=== PATIENT | female | born 1970 | race Caucasian/White ===

== ENCOUNTER 2017-04-24 17:51 | Inpatient (IN) | payer MEDICARE ==
[~2017-04-24] VITALS: Ht 157.5 cm; Wt 77.1 kg
--- NOTE | ~2017-04-24 | PA ---
Unit #: [id number] #: [id number] Patient: ELENITA BROUSSARD [id number] [facility] [address] [place] [address] [id number] I MR#: [id number] NAME: ELENITA BROUSSARD ROOM: [facility] Age: 47 Sex: F Admission Date: 04/24/2017 : 1970 Date of Assessment: 04/25/2017 Attending Physician: Hima Sylvester M.D. Admitting Physician: Hima Sylvester M.D. Primary Care Physician: Primary Care Physician No PSYCHIATRIC ASSESSMENT INFORMANTS The patient reliability, fair informant and chart reliability, good. CHIEF COMPLAINT Depression and suicidal ideation. HISTORY OF PRESENT ILLNESS Ms. Dutta is a 47-year-old female, presented with the above-mentioned complaint. The patient reports that her medications are not working and reported suicidal ideation with a plan to overdose on pills. The patient reported having suicidal ideation for the last 3 days. The patient reported feeling sad, depressed, and feeling of hopelessness and worthlessness. Reported auditory hallucination and command hallucination to kill herself. The patient reported previous two suicide attempts by taking an overdose. The patient denied any homicidal ideation or any drug abuse. Lives alone. The patient reports she is on disability for mental health. Reports she has attended college. Currently, staying in a homeless nursing home. Unable to take her medication. Also, diagnosed with diabetes. Poor support system. Sleeping 4 hours. Needing inpatient admission at this time for psychiatric stabilization. PAST PSYCHIATRIC HISTORY Remarkable for history of previous two suicide attempts as mentioned above. History of previous inpatient treatment in 10/2016 and history of inpatient in 2015 at [facility]. FAMILY HISTORY AND SOCIAL HISTORY Poor support system. Currently, lives in a nursing home. No known history of any abuse known at this time. MEDICAL HISTORY Remarkable for diabetes. Musculoskeletal; muscle strength and tone, no atrophy or abnormal movement. Gait normal. MEDICATION HISTORY The patient is on metformin, Risperdal, Paxil, and Cogentin. ALLERGIES No known drug allergies. SUBSTANCE ABUSE HISTORY Tobacco use, age of onset 41 and alcohol, last use a month ago. No known history of any blackout, HIV, hepatitis, withdrawal symptom, or IV drug Unit #: [id number] #: [id number] Patient: ELENITA BROUSSARD use. REVIEW OF SYSTEMS HEENT: Eyes, clear. Ears, nose, mouth, and throat; clear. CARDIOVASCULAR: Unremarkable. RESPIRATORY: Unremarkable. GI: Unremarkable. : Unremarkable. SKIN: Unremarkable. LYMPH NODE: Unremarkable. NEUROLOGIC: Unremarkable. ENDOCRINE: Unremarkable. HEMATOLOGIC: Unremarkable. ALLERGIC/IMMUNOLOGIC: Unremarkable. MUSCULOSKELETAL: Muscle strength and tone, no atrophy or abnormal movement. Gait normal. MENTAL STATUS EXAMINATION CONSTITUTIONAL: Measurement of vital signs; temperature 98.1, heart rate 90, respiratory rate 18, and blood pressure 125/93. Height 5 feet 2 inches and weight 170 pounds. GENERAL APPEARANCE: The patient dressed casually. The patient did not show any facial deformity. MUSCULOSKELETAL: Please see above. PSYCHIATRIC EXAMINATION Description of speech, slow in volume and rate. Description of thought process, circumstantial. Description of association; guarded, paranoid, depressed, and suicidal ideation. Denied any homicidal ideation. Description of the patient's judgment: Concerning everyday activity, poor. Social situation, poor. Concerning psychiatric condition, poor. Complete mental status examination; oriented in time, place, and person. Recent and remote memory, fair. Attention span and concentration, fair. Language, able to name object and repeat phrases. Fund of knowledge, aware of current event and passive vocabulary intact. Mood and affect, sad and dysphoric. Insight and judgment, fair to poor. ASSETS AND LIABILITIES Assets, the patient is articulate and able to take care of her ADL. Liability, history of depression and suicidal ideation. ADMITTING DIAGNOSES Psychiatric: Major depressive disorder, recurrent, severe, F33.2; rule out bipolar mood disorder; rule out schizophrenia; and anxiety disorder, not otherwise specified. Secondary diagnosis: Deferred. Medical diagnosis: Diabetes. Stressors: Psychosocial stressors. PSYCHIATRIC PLAN AND TREATMENT GOAL AND DISCHARGE PLAN 1. Advised to admit the patient on the inpatient unit. Provide safe, supportive, and structured environment. 2. Ordered labs; CBC, CMP, UA, and UDS. 3. Precaution for self-harm and psychosis. Advised to resume home Unit #: [id number] #: [id number] Patient: ELENITA BROUSSARD medication. If needed, consider further adjustment of medication. We will get a medical consult for the management of diabetes. The patient to attend all the programing on the inpatient unit including group therapy and individual therapy. TREATMENT GOAL To attain euthymic mood, gain insight into her problem, and learn coping skills. DISCHARGE PLAN Plan to stabilize the patient and consider followup in outpatient program. ESTIMATED LENGTH OF STAY 2 weeks. Dictated by... Lanre Worrell/merlin TD: 04/25/2017 17:51 JOB #: [id number] PSYCHIATRIC ASSESSMENT Page 1 of 1 X Hima Sylvester MD X PSYCHIATRIC ASSESSMENT
--- NOTE | ~2017-04-24 | PN ---
Unit #: [id number] #: [id number] Patient: ELENITA BROUSSARD [id number] [facility] [address] [place] [address] [id number] MR#: [id number] NAME: ELENITA BROUSSARD ROOM: [facility] Age: 47 Sex: F Admission Date: 04/24/2017 : 1970 Attending Physician: Hima Sylvester M.D. Admitting Physician: Hima Sylvester M.D. Primary Care Physician: Primary Care Physician Constance RAMIREZ NOTES DATE OF SERVICE: 04/25/2017 DISCUSSION Ms. Dutta is a 47-year-old female. The patient interviewed, chart reviewed, and obtained information from nursing staff. The patient is compliant and cooperative, mood is sad and depressed, withdrawn, flat affect, sad and dysphoric mood, isolative. Complete review of systems unremarkable. MENTAL STATUS EXAMINATION General appearance, the patient dressed casually. Attention span and concentration, fair. Oriented in time, place, and person. Mood and affect, sad, depressed, withdrawn. Speech, monotone. Thought process, concrete. The patient denied any homicidal ideation, but suicidal ideation, hallucination, and delusional, paranoia. Recent and remote memory, poor. Insight and judgment, poor. DIAGNOSES Major depressive disorder, recurrent, severe. ASSESSMENT AND PLAN Advised to continue with current medication Paxil 20 mg daily, Cogentin 1 mg b.i.d., Risperdal 3 mg b.i.d., trazodone 75 mg q.h.s. p.r.n. for sleep. The patient to attend all the programing on the inpatient unit. If needed, consider further adjustment of medication. Dictated by... Lanre Worrell/merlin TD: 04/25/2017 17:39 JOB #: [id number] Unit #: [id number] #: [id number] Patient: ELENITA BROUSSARD [facility] PROGRESS NOTES Page 1 of 1 X Hima Sylvester MD X PROGRESS NOTE
--- NOTE | ~2017-04-24 | PN ---
Unit #: [id number] #: [id number] Patient: ELENITA BROUSSARD [id number] [facility] [address] [place] [address] [id number] I MR#: [id number] NAME: ELENITA BROUSSARD ROOM: [facility] Age: 47 Sex: F Admission Date: 04/24/2017 : 1970 Attending Physician: Hima Sylvester M.D. Admitting Physician: Hima Sylvester M.D. Primary Care Physician: Primary Care Physician Constance RAMIREZ NOTES DATE 04/27/2017 DISCUSSION Ms. Dutta is a 47-year-old female. The patient interviewed, chart reviewed, and obtained information from the nursing staff. The patient is currently on Paxil 20 mg daily, also taking Cogentin, Risperdal, the patient was somewhat guarded, paranoid, mood lability, bizarre behavior. REVIEW OF SYSTEMS Complete review of systems unremarkable. MENTAL STATUS EXAMINATION General appearance: Patient dressed casually. Attention span and concentration, fair. Oriented in time, place, and person. Mood and affect, sad and dysphoric. Speech, monotone. Thought process, concrete. The patient denied any thoughts of harming self or others. The patient still guarded, paranoid, refusing to answer questions about suicidal or homicidal ideation, but paranoia. Recent and remote memory, poor. Insight and judgment, impaired. DIAGNOSIS Schizoaffective disorder, bipolar type. ASSESSMENT/PLAN Advised to continue with the current medication and therapeutic protocol, and if needed consider further adjustment of medication. Dictated by... Lanre Worrell/dewayne TD: 04/29/2017 07:10 JOB #: [id number] Unit #: [id number] #: [id number] Patient: ELENITA BROUSSARD KATHERIN RAMIREZ NOTES Page 1 of 1 X Hima Sylvester MD PROGRESS NOTE
--- NOTE | ~2017-04-24 | HP ---
Unit #: [id number] #: [id number] Patient: ELENITA BROUSSARD [id number] [place] [address] [id number] MR#: [id number] NAME: ELENITA BROUSSARD ROOM: [facility] Age: 47 Sex: F Admission Date: 04/24/2017 : 1970 Attending Physician: Hima Sylvester M.D. Admitting Physician: Hima Sylvester M.D. Primary Care Physician: Primary Care Physician No HISTORY AND PHYSICAL HISTORY OF PRESENT ILLNESS Elenita is a 47-year-old female admitted on 04/24/2017 for depression and suicidal ideation. PAST MEDICAL HISTORY 1. Obesity. 2. Asthma. 3. Type 2 diabetes. PAST SURGICAL HISTORY 1. section x1. 2. Tonsillectomy. 3. Appendectomy. ALLERGIES Trileptal, Haldol, Geodon, . SOCIAL HISTORY Smokes 1 pack of cigarettes daily. Occasional alcohol use and denies any illegal drug use. She is currently single and homeless. FAMILY HISTORY Noncontributory. REVIEW OF SYSTEMS CONSTITUTIONAL: No fever or chills. HEENT: Denies any sore throat, ear pain or runny nose. CARDIOVASCULAR: Denies chest pain, irregular heart rhythm or palpitations. CHEST: Denies shortness of breath or cough. No hemoptysis. GASTROINTESTINAL: Denies nausea, vomiting, diarrhea or chronic constipation. ENDOCRINE: Denies history of increased thirst or urination. No recent significant weight loss or gain. GENITOURINARY: Denies dysuria, frequency, or hematuria. SKIN: Denies any rashes. HEMATOLOGIC: Denies history of increased bleeding or bruising. MUSCULOSKELETAL: Denies any hot, swollen joints. No generalized muscle pain. NEUROLOGIC: Denies problems with vision or speech. No frequent, severe headaches. No numbness, tingling or weakness in any extremities. Denies loss of bladder or bowel control. CURRENT MEDICATIONS Unit #: [id number] #: [id number] Patient: ELENITA BROUSSARD 1. Paxil. 2. Risperdal. 3. Cogentin. PHYSICAL EXAMINATION GENERAL: Alert, oriented, in no acute distress. VITAL SIGNS: Blood pressure 125/93, heart rate 90, respirations 18. HEIGHT: 5 feet 2. WEIGHT: 170 pounds. SKIN: Warm and dry without rash or lesion. HEENT: Normocephalic. TMs not viewed. Oral and nasal passages clear. Conjunctivae clear. PERRLA. EOMs intact. NECK: Supple without lymphadenopathy or thyromegaly. HEART: Regular rate and rhythm without murmur. LUNGS: Clear. ABDOMEN: Soft, nontender, without masses or hepatosplenomegaly. : Not done. EXTREMITIES: No evidence of cyanosis, clubbing or edema. Moves all without focal deficit. NEUROLOGICAL: Grossly within normal limits. Cranial Nerves: II: Visual hernandez are intact. III, IV AND : Extraocular movements are intact. Pupils are equal, round and reactive to light. V: Facial sensation is grossly normal. VII: Facial movements and expression are normal. VIII: Auditory acuity grossly intact. IX, X: Uvula is midline. Phonation is normal. XI: Patient shrugs shoulders and turns head normally. XII: Tongue protrudes in the midline. Sensory and Motor Function: Sensory and motor sensation is grossly normal. Motor: moves all extremities well. Coordination: Gait is normal. Deep Tendon Reflexes: Intact. IMPRESSION Psychiatric admission. RECOMMENDATIONS PSYCHIATRIC: Per psychiatrist. MEDICAL: No contraindication to participate in facility's activities. MEDICAL PROGNOSIS Good. MEDICAL CONDITION Stable. Dictated by... Juan Alberto Richardson/andrea TD: 04/25/2017 23:09 JOB #: [id number] Unit #: [id number] #: [id number] Patient: ELENITA BROUSSARD HISTORY AND PHYSICAL Page 1 of 1 X ALBERTO PAGAN APRN HISTORY AND PHYSICAL
--- NOTE | ~2017-04-24 | DS ---
Unit #: [id number] #: [id number] Patient: ELENITA BROUSSARD [id number] [facility] [address] [place] [address] [id number] I MR#: [id number] NAME: ELENITA BROUSSARD ROOM: [facility] Age: 47 Sex: F Admission Date: 04/24/2017 : 1970 Discharge Date: 05/01/2017 Attending Physician: Hima Sylvester M.D. Primary Care Physician: Primary Care Physician No DISCHARGE SUMMARY REASON FOR ADMISSION Suicidal ideation. DIAGNOSTIC STUDIES LABORATORY RESULTS: Remarkable for glucose 313, creatinine 0.5. HOSPITAL COURSE The patient was admitted to inpatient unit on 04/24/2017 and discharged on 05/01/2017. The patient was treated on the inpatient unit with structured milieu, medication management, psychoeducation, psychotherapy, expressive therapy. The patient was responsive to treatment and showed improvement. Subsequently, the patient was discharged with a plan to follow up in outpatient program. DISCHARGE MEDICATIONS Desyrel 75 mg at bedtime for sleep, Paxil 20 mg daily for depression, Risperdal 3 mg b.i.d. for psychosis, and Cogentin 1 mg b.i.d. for EPS symptom. DISCHARGE DIAGNOSES Psychiatric: Schizoaffective disorder, bipolar type, F25.9. Secondary diagnosis: Deferred. Medical diagnosis: Diabetes. Stressors: Psychosocial stressors. DISCHARGE INSTRUCTIONS The patient to follow up in outpatient clinic as per school social worker. CONDITION ON DISCHARGE The patient was pleasant and cooperative. Denied any psychotic symptom or any suicidal ideation. PROGNOSIS Guarded. DIET AND ACTIVITY As tolerated. Dictated by... Unit #: [id number] #: [id number] Patient: ELENITA BROUSSARD Lanre Worrell/merlin TD: 05/01/2017 15:45 JOB #: [id number] DISCHARGE SUMMARY Page 1 of 1 X Hima Sylvester MD X DISCHARGE SUMMARY
--- NOTE | ~2017-04-24 | PN ---
Unit #: [id number] #: [id number] Patient: ELENITA BROUSSARD [id number] [facility] [address] [place] [address] [id number] I MR#: [id number] NAME: ELENITA BROUSSARD ROOM: [facility] Age: 47 Sex: F Admission Date: 04/24/2017 : 1970 Attending Physician: Hima Sylvester M.D. Admitting Physician: Hima Sylvester M.D. Primary Care Physician: Primary Care Physician Constance RAMIREZ NOTES DATE 04/28/2017 DISCUSSION Ms. Dutta is a 47-year-old female, seen on 04/28/2017. The patient interviewed, chart reviewed, and obtained information from the nursing staff. The patient's vital signs stable, 98.0, 91, 14, and 116/78. The patient was cooperative, redirectable, somewhat isolative, quite, somewhat bizarre behavior. Compliant with medication. No side effects from medication. REVIEW OF SYSTEMS Complete review of systems unremarkable. MENTAL STATUS EXAMINATION General appearance: Patient dressed in hospital attire. Attention span and concentration, poor. Oriented in place and person. Mood and affect, sad, depressed, flat affect. Speech, monotone. Thought process, concrete. The patient denied any thoughts of harming self or others but withdrawn, isolative, guarded, flat, sad, dysphoric, isolative, somewhat guarded, paranoid. Recent and remote memory, poor. Insight and judgment, poor. DIAGNOSIS Bipolar mood disorder, NOS. ASSESSMENT/PLAN Advised to continue with the current medication and therapeutic protocol, and if needed consider further adjustment of medication. Dictated by... Lanre Worrell/dewayne TD: 04/30/2017 06:08 JOB #: [id number] Unit #: [id number] #: [id number] Patient: ELENITA BROUSSARD KATHERIN RAMIREZ NOTES Page 1 of 1 X Hima Sylvester MD X PROGRESS NOTE
--- NOTE | ~2017-04-24 | PN ---
Unit #: [id number] #: [id number] Patient: ELENITA BROUSSARD [id number] [facility] [address] [place] [address] [id number] I MR#: [id number] NAME: ELENITA BROUSSARD ROOM: [facility]2 Age: 47 Sex: F Admission Date: 04/24/2017 : 1970 Attending Physician: Hima Sylvester M.D. Admitting Physician: Hima Sylvester M.D. Primary Care Physician: Primary Care Physician Constance PANDEY PROGRESS NOTES DATE OF SERVICE 04/30/2017 DISCUSSION Elenita is a 47-year-old female seen on 04/30/2017. The patient interviewed, chart reviewed. Obtained information from nursing staff. The patient was compliant, cooperative. Mood sad, dysphoric, flat affect, guarded. The patient reports making progress, but still isolative, guarded. Complete Review of Systems: Unremarkable. MENTAL STATUS EXAMINATION General Appearance: The patient dressed casually. Attention span, concentration: Fair. Oriented in time, place, and person. Mood and affect: Sad, dysphoric, withdrawn. Isolative, dressed in hospital attire. Recent and remote memory: Poor. Insight and judgment: Poor. DIAGNOSIS Major depressive disorder, recurrent. ASSESSMENT/PLAN Advised to continue with current medication and therapeutic protocol. If needed, consider further adjustment of medication. Dictated by... Lanre Worrell/denice TD: 05/01/2017 06:53 JOB #: [id number] Unit #: [id number] #: [id number] Patient: ELENITA BROUSSARD [facility] PROGRESS NOTES Page 1 of 1 X Hima Sylvester MD X PROGRESS NOTE
--- NOTE | ~2017-04-24 | PN ---
Unit #: [id number] #: [id number] Patient: ELENITA BROUSSARD [id number] [facility] [address] [place] [address] [id number] I MR#: [id number] NAME: ELENITA BROUSSARD ROOM: [facility]2 Age: 47 Sex: F Admission Date: 04/24/2017 : 1970 Attending Physician: Hima ySlvester M.D. Admitting Physician: Hima Sylvester M.D. Primary Care Physician: Primary Care Physician Constance RAMIREZ NOTES DATE OF SERVICE: 04/26/2017 DISCUSSION Ms. Dutta is a 47-year-old female, seen on 04/26/2017. The patient interviewed, chart reviewed, and obtained information from nursing staff. The patient was able to participate in group, able to maintain safe behavior, compliant and cooperative. The patient did not show any aggression or any suicidal ideation, but sad, depressed, withdrawn, isolative, guarded. REVIEW OF SYSTEMS Complete review of systems unremarkable. MENTAL STATUS EXAMINATION General appearance, the patient dressed casually. Attention span and concentration, fair. Oriented in time, place, and person. Mood and affect; sad and dysphoric. Speech, monotone. Thought process, concrete. The patient denied any thoughts of harming self or others, but sad, depressed, withdrawn, isolative. Recent and remote memory, poor. Insight and judgment, poor. DIAGNOSIS Major depressive disorder, recurrent. ASSESSMENT/PLAN Advised to continue with current medication and therapeutic protocol. If needed, consider further adjustment of medication. Dictated by... Lanre Worrell/merlin TD: 04/26/2017 23:40 JOB #: [id number] Unit #: [id number] #: [id number] Patient: ELENITA BROUSSARD KATHERIN PROGRESS NOTES Page 1 of 1 X Hima Sylvester MD PROGRESS NOTE
--- NOTE | ~2017-04-24 | PN ---
Unit #: [id number] #: [id number] Patient: ELENITA BROUSSARD [id number] [facility] [address] [place] [address] [id number] I MR#: [id number] NAME: ELENITA BROUSSARD ROOM: [facility] Age: 47 Sex: F Admission Date: 04/24/2017 : 1970 Attending Physician: Hima Sylvester M.D. Admitting Physician: Hima Sylvester M.D. Primary Care Physician: Primary Care Physician Constance RAMIREZ NOTES DATE 04/29/2017 DISCUSSION Ms. Dutta is a 47-year-old female seen on 04/29/2017. Patient interviewed. Chart reviewed. Obtained information from nursing staff. Patient dressed in hospital attire, withdrawn, isolative, guarded, paranoid. Still with bizarre behavior, isolating in her room. Denied any complaints. Patient answering questions in short sentences, very quiet. No side effects from medication. Complete review of system unremarkable. MENTAL STATUS EXAMINATION General appearance, patient dressed in hospital attire. Attention span, concentration poor. Oriented in place and person. Mood and affect sad, depressed. Speech slow in volume, monotone. Thought process concrete. Patient reported having passive SI, withdrawn, isolative, guarded, paranoid. Recent and remote memory poor. Insight and judgement poor. DIAGNOSES 1. Major depressive disorder, recurrent, severe, F33.2. 2. Rule out bipolar mood disorder. 3. Rule out schizophreniform disorder. ASSESSMENT/PLAN Advised to continue with current medication and therapeutic protocol. If needed, consider further adjustment of medication. Dictated by... Lanre Worrell/andrea TD: 04/30/2017 15:30 JOB #: [id number] Unit #: [id number] #: [id number] Patient: ELENITA BROUSSARD KATHERIN RAMIREZ NOTES Page 1 of 1 X Hima Sylvester MD PROGRESS NOTE
[2017-04-25 12:28] LABS: BASOPHIL# 0.1 X10e3 (0-0.3); BASOPHIL% 0.9 % (0-2.5); DIFF IND NO; EOSINOPHIL# 0.2 X10e3 (0-0.7); EOSINOPHIL% 2.2 % (0.0-7.0); HEMATOCRIT 39.9 % (35.0-45.0); LYMPHOCYTE# 3.1 X10e3 (1.0-3.5); LYMPHOCYTE% 38.6 % (17.0-45.0); MEAN CELL VOLUME 97.9 FL (83-96); MEAN CORPUSCULAR HEMOGLOBIN 31.8 PG (28-34); MEAN CORPUSCULAR HGB CONC 32.4 g/dL (30-36); MEAN PLATELET VOLUME 7.8 FL (6.5-11.5); MONOCYTE# 0.5 X10e3 (0-1.0); NEUTROPHIL# 4.2 X10e3 (1.5-7.1); NEUTROPHIL% 52.3 % (40-75); PLATELET COUNT 423 X10e3 (140-420); RED BLOOD COUNT 4.08 X10e (3.90-5.30); RED CELL DISTRIBUTION WIDTH 13.1 % (11.0-15.5); WHITE BLOOD COUNT 8.1 X10e3 (4.0-10.5)
[2017-04-25 12:47] LABS: ALBUMIN SERUM 3.4 g/dL (3.5-5.0); BILIRUBIN,TOTAL 0.6 mg/dL (0.2-2.0); CALCIUM SERUM 8.9 mg/dL (8.4-10.2); CREATININE SERUM 0.5 mg/dL (0.6-1.4); GLOM FILT RATE Estimated 116.1 mL/min (>60); POTASSIUM 4.6 mmol/L (3.5-5.1); PROTEIN TOTAL SERUM 6.2 g/dL (6.0-8.3)
== END 2017-05-01 10:20 | disposition home or self-care (01) | DRG 885 ==
LOC: P1S 21:06
PROVIDERS: Psychiatry & Neurology Psychiatry
DX: F33.2 Major depressive disorder, recurrent severe without psychotic features (principal); E11.9 Type 2 diabetes mellitus without complications; F17.210 Nicotine dependence, cigarettes, uncomplicated; E66.9 Obesity, unspecified; J45.909 Unspecified asthma, uncomplicated
CPT/HCPCS: 80053; 84703; 85025

== ENCOUNTER 2017-05-08 01:00 | Inpatient (IN) | payer MEDICARE ==
[~2017-05-08] VITALS: Ht 154.9 cm; Wt 77.1 kg
--- NOTE | ~2017-05-08 | PN ---
Unit #: [id number] #: [id number] Patient: ELENITA BROUSSARD [id number] [facility] [address] [place] [address] [id number] MR#: [id number] NAME: ELENITA BROUSSARD ROOM: [facility] Age: 47 Sex: F Admission Date: 05/08/2017 : 1970 Attending Physician: Hima Sylvester M.D. Admitting Physician: Hima Sylvester M.D. Primary Care Physician: Primary Care Physician Constance HENSONCE PROGRESS NOTES DATE OF SERVICE 05/10/2017 DISCUSSION Ms. Dutta is a 47-year-old female. Patient interviewed, chart reviewed, I obtained information from nursing staff. Patient was compliant, cooperative; mood was labile. Patient somewhat guarded, denied any suicidal ideation this morning, but still withdrawn, isolative, guarded, poor hygiene. COMPLETE REVIEW OF SYSTEMS Unremarkable. MENTAL STATUS EXAMINATION GENERAL APPEARANCE: Patient dressed casually. ATTENTION SPAN AND CONCENTRATION: Poor. ORIENTATION: Place and person. MOOD AND AFFECT: Labile. SPEECH: Monotone. THOUGHT PROCESS: [place]. Patient denied any suicidal ideation, but withdrawn, isolative, guarded, seclusive. RECENT AND REMOTE MEMORY: Poor. INSIGHT AND JUDGMENT: Poor. DIAGNOSES Major depressive disorder, recurrent, severe Schizoaffective disorder, bipolar type ASSESSMENT/PLAN Advised to continue with current medication and therapeutic protocol. Would like to see some stability in her mood before discharging patient, as patient was admitted recently and re-hospitalized. Dictated by... Lanre Worrell/david TD: 05/11/2017 02:59 Unit #: [id number] #: [id number] Patient: ELENITA BROUSSARD JOB #: [id number] [facility] PROGRESS NOTES Page 1 of 1 X Hima Sylvester MD PROGRESS NOTE
--- NOTE | ~2017-05-08 | PA ---
Unit #: [id number] #: [id number] Patient: ELENITA BROUSSARD [id number] [facility] [place] [address] [id number] I MR#: [id number] NAME: ELENITA BROUSSARD ROOM: P131 Age: 47 Sex: F Admission Date: 05/08/2017 : 1970 Date of Assessment: Attending Physician: Hima Sylvester M.D. Admitting Physician: Hima Sylvester M.D. Primary Care Physician: Primary Care Physician No PSYCHIATRIC ASSESSMENT DATE OF SERVICE 05/08/2017 INFORMANTS The patient's reliability, fair; chart reliability, good. CHIEF COMPLAINT Depression and suicidal ideation. HISTORY OF PRESENT ILLNESS Ms. Dutta is a 47-year-old white female, who has a long history of depression, multiple admission at [facility], recent admission on 04/24/2017. The patient was last discharged on 05/01/2017. The patient presented with suicidal ideation with a plan to overdose on her pills. The patient reports that she is homeless. She has been in and out of the psychiatric treatment from the last year. She reports that she has not taken her medication in the last several weeks. The patient reported that she has 12 children and all of them are . I asked how they , she was not sure. The patient thoughts were somewhat guarded, paranoid, disorganized, attending to internal stimuli. The patient is from [place] and was on her way to [place], [place] to go back to her family. When she was stranded in [place] according to the intake report, the patient has been staying at [facility] and has not been allowed in [facility]. The patient stated that she has been hearing voices, telling her to harm herself. Needing inpatient admission at this time for psychiatric stabilization. PAST PSYCHIATRIC HISTORY Remarkable for history of previous admission on 04/24/2017. History of other treatment as mentioned above. FAMILY HISTORY AND SOCIAL HISTORY The patient has a poor support system. Currently, lives in a [facility]. No history of any abuse at this time. MEDICAL HISTORY Remarkable for history of diabetes. Musculoskeletal; muscle strength and tone, no atrophy or abnormal movement. Gait normal. MEDICATION HISTORY The patient is on metformin, Risperdal, Paxil, and Cogentin. ALLERGIES Unit #: [id number] #: [id number] Patient: ELENITA BROUSSARD No known drug allergies. SUBSTANCE ABUSE HISTORY The patient reported tobacco use, age of onset 15; alcohol, age of onset 41. No known history of any blackout, HIV, hepatitis, withdrawal symptom, or any IV drug use. REVIEW OF SYSTEMS HEENT: Eyes, clear. Ears, nose, mouth, and throat; clear. CARDIOVASCULAR: Unremarkable. RESPIRATORY: Unremarkable. GI: Unremarkable. : Unremarkable. SKIN: Unremarkable. LYMPH NODE: Unremarkable. NEUROLOGIC: Unremarkable. ENDOCRINE: Unremarkable. HEMATOLOGIC: Unremarkable. ALLERGIC/IMMUNOLOGIC: Unremarkable. MUSCULOSKELETAL: Muscle strength and tone, no atrophy or abnormal movement. Gait normal. MENTAL STATUS EXAMINATION CONSTITUTIONAL: Measurement of vital signs; temperature 98.1, heart rate 77, respirations 20, blood pressure 119/73, height 5 feet 1 inch, weight 170 pounds. GENERAL APPEARANCE: The patient dressed casually in hospital attire. No facial deformity noted. MUSCULOSKELETAL: Please see above. PSYCHIATRIC EXAMINATION Description of speech; slow in volume and rate. Description of thought process; circumstantial. Description of association; guarded. Description of abnormal psychotic thinking; guarded, paranoid, mood lability, suicidal ideation, disorganized behavior, thought process. Description of the patient's judgment; concerning everyday activity, poor. Social situation, poor. Concerning psychiatric condition, poor. Complete mental status examination; oriented in self and place. Recent and remote memory, poor. Attention span and concentration, poor. Language, fair. Fund of knowledge, poor. Vocabulary, poor. Mood and affect, sad and depressed. Insight and judgment, poor. ASSETS AND LIABILITIES Assets, the patient is articulate and able to take care of her ADL. Liability, history of depression and psychosis. ADMITTING DIAGNOSES Psychiatric: Major depressive disorder, recurrent, severe, F33.2; rule out bipolar mood disorder; rule out schizoaffective disorder. Secondary diagnosis: Deferred. Medical diagnosis: Diabetes. Stressors: Psychosocial stressors. PSYCHIATRIC PLAN Unit #: [id number] #: [id number] Patient: ELENITA BROUSSARD 1. Advised to admit the patient on the inpatient unit. Provide safe, supportive, and structured environment. 2. Ordered labs; UA, and UDS. 3. Precaution for aggression and psychosis and SC1 precaution. 4. Advised to resume the patient's medication. If needed, consider further adjustment of medication. The patient to attend all the programing on the inpatient unit. TREATMENT GOAL To attain euthymic mood, gain insight into her problem, and learn coping skills. DISCHARGE PLAN Plan to stabilize the patient and consider followup in outpatient program. ESTIMATED LENGTH OF STAY 2 weeks. Dictated by... Lanre Worrell/merlin TD: 05/09/2017 00:03 JOB #: [id number] PSYCHIATRIC ASSESSMENT Page 1 of 1 X Hima Sylvester MD X PSYCHIATRIC ASSESSMENT
--- NOTE | ~2017-05-08 | DS ---
Unit #: [id number] #: [id number] Patient: ELENITA BROUSSARD [id number] [facility] [address] [place] [address] [id number] MR#: [id number] NAME: ELENITA BROUSSARD ROOM: [facility] Age: 47 Sex: F Admission Date: 05/08/2017 : 1970 Discharge Date: 05/11/2017 Attending Physician: Hima Sylvester M.D. DISCHARGE SUMMARY REASON FOR ADMISSION Depression and suicidal ideation. DIAGNOSTIC STUDIES LABORATORY RESULTS: Unremarkable. HOSPITAL COURSE The patient was admitted to inpatient unit on 05/08/2017 and discharged on 05/11/2017. The patient was treated on the inpatient unit with group therapy, individual therapy, expressive therapy, and structured milieu. The patient was resumed on her medication. Despite medications, the patient showed improvement. Reports that she is going back to [place], [place]. She reports that she got money from her disability. The patient requested for discharge. Denied any suicidal or homicidal ideation. DISCHARGE MEDICATIONS Desyrel 75 mg at bedtime for sleep, Paxil 20 mg daily for depression, Risperdal 3 mg b.i.d. for psychosis, Cogentin 1 mg b.i.d. for EPS symptom, Glucophage 500 mg b.i.d. for diabetes, Levemir 10 units at bedtime for diabetes. DISCHARGE DIAGNOSES Psychiatric: Schizoaffective disorder, bipolar type, F25.9. Secondary diagnosis: Deferred. Medical diagnosis: Diabetes. Stressors: Psychosocial stressors. DISCHARGE INSTRUCTIONS The patient to follow up in outpatient clinic as per social work msw. CONDITION ON DISCHARGE The patient was pleasant and cooperative. Denied any psychotic symptom or any suicidal ideation. PROGNOSIS Guarded. DIET AND ACTIVITY As tolerated. Unit #: [id number] #: [id number] Patient: ELENITA BROUSSARD Dictated by... Lanre WorrellC/merlin TD: 05/11/2017 10:56 JOB #: [id number] DISCHARGE SUMMARY Page 1 of 1 X Hima Sylvester MD X DISCHARGE SUMMARY
--- NOTE | ~2017-05-08 | HP ---
Unit #: [id number] #: [id number] Patient: ELENITA BROUSSARD [id number] [facility] [address] [place] [address] [id number] I MR#: [id number] NAME: ELENITA BROUSSARD ROOM: 31 Age: 47 Sex: F Admission Date: 05/08/2017 : 1970 Attending Physician: Hima Sylvester M.D. Admitting Physician: Hima Sylvester M.D. Primary Care Physician: Primary Care Physician No HISTORY AND PHYSICAL HISTORY OF PRESENT ILLNESS Elenita is a 47 year old admitted to [address] [place] [address] with depression and verbalizing wanting to hurt herself. She was just discharged from this facility after treatment for the same. PAST MEDICAL HISTORY The patient was seen and history and physical dated 04/25/2017 was reviewed. This is current. No changes. Please see history and physical dated 04/25/2017. Dictated by... Elenita Romero P.A.-C. for Lanre Weaver/mikael TD: 05/09/2017 00:15 JOB #: [id number] HISTORY AND PHYSICAL Page 1 of X Elenita Romero X HISTORY AND PHYSICAL
--- NOTE | ~2017-05-08 | PN ---
Unit #: [id number] #: [id number] Patient: ELENITA BROUSSARD [id number] [facility] [address] [place] [address] [id number] I MR#: [id number] NAME: ELENITA BROUSSARD ROOM: 31 Age: 47 Sex: F Admission Date: 05/08/2017 : 1970 Attending Physician: Hima Sylvester M.D. Admitting Physician: Hima Sylvester M.D. Primary Care Physician: Primary Care Physician Constance PANDEY PROGRESS NOTES DATE 05/09/2017 DISCUSSION Ms. Dutta is a 47-year-old female seen on 05/09/2017. Patient interviewed. Chart reviewed. Obtained information from nursing staff. Patient was compliant, cooperative. Mood sad, dysphoric, flat affect, guarded. Patient reported feeling sad, depressed, feeling of hopelessness, guarded, paranoid. Complete review of system unremarkable. MENTAL STATUS EXAMINATION General appearance, patient dressed casually in hospital attire, isolative, guarded. Poor eye contact. Flat affect. Speech monotone. Thought processes concrete. Patient reported having suicidal thoughts, guarded, paranoid. Recent and remote memory poor. Insight and judgement poor. DIAGNOSES 1. Major depressive disorder, recurrent, severe. 2. Bipolar mood disorder NOS. ASSESSMENT/PLAN Advised to continue with current medication and therapeutic protocol. If needed, consider further adjustment of medication. Dictated by... Lanre Worrell/andrea TD: 05/09/2017 22:50 JOB #: [id number] Unit #: [id number] #: [id number] Patient: ELENITA BROUSSARD [facility] PROGRESS NOTES Page 1 of 1 X Hima Sylvester MD PROGRESS NOTE
--- NOTE | ~2017-05-08 | CO ---
Unit #: [id number] #: [id number] Patient: ELENITA BROUSSARD [id number] [place] [address] [id number] I MR#: [id number] NAME: ELENITA BROUSSARD ROOM: [facility] Age: 47 Sex: F Admission Date: 05/08/2017 : 1970 Attending Physician: Hima Sylvester M.D. Consultation Date: 05/08/2017 CONSULTATION REPORT SUBJECTIVE Elenita is a 47-year-old with a history of diabetes mellitus, type 2. She admits she has been noncompliant with any kind of diabetic medication. We have been asked to assess her need for medication. She was seen for her admission H and P on 05/08/2017. Admission labs included normal BUN, creatinine, and potassium. PLAN Plan will be to start Glucophage 500 mg one p.o. b.i.d. Monitor Accu-Cheks a.c. and h.s. She will need to follow up with PCP. Dictated by... Elenita Romero P.A.-C. for Lanre Weaver/merlin TD: 05/23/2017 14:21 JOB #: [id number] CONSULTATION REPORT Page 1 of 1 X Elenita Romero CONSULTATION REPORT
== END 2017-05-11 09:40 | disposition home or self-care (01) | DRG 885 ==
LOC: P1S 05:05
DX: F25.0 Schizoaffective disorder, bipolar type (principal); E11.9 Type 2 diabetes mellitus without complications
CPT/HCPCS: 82947